=== PATIENT | female | born 1950 | race American Indian/Alaskan Native ===

== ENCOUNTER 2016-11-04 11:00 | Outpatient (CLI) | payer MEDICARE | END 2016-11-04 11:01 | disposition home or self-care (01) | LOC: SLR 11:00 | PROVIDERS: ATTEND Family Medicine | DX: G47.33 Obstructive sleep apnea (adult) (pediatric) (principal) | CPT/HCPCS: 95810 ==

== ENCOUNTER 2017-03-29 13:18 | Outpatient (CLI) | payer MEDICARE | END 2017-03-29 13:19 | disposition home or self-care (01) | LOC: LAB 13:18 | PROVIDERS: ATTEND Specialist | DX: G35 Multiple sclerosis (principal) | CPT/HCPCS: 36415; 82164; 83036; 83921; 85652; 86038; 86225; 86334; 86592; 86618 ==